=== PATIENT | female | born 1980 | race Caucasian/White ===

== ENCOUNTER 2019-02-14 05:40 | Day surgery (SDC) | payer BC ==
[2019-02-13 12:33] LABS: CALC OSMOLALITY 276 mosm/kg (275-300); CALCIUM 8.8 mg/dL (8.5-10.1); CARBON DIOXIDE 28.2 mmol/L (21.0-32.0); CHLORIDE - SERUM 104 mmol/L (98-107); CREATININE - SERUM 0.7 mg/dL (0.6-1.3); GLUCOSE 94 mg/dL (74-106); POTASSIUM - SERUM 4.1 mmol/L (3.5-5.1); SODIUM 140 mmol/L (136-145); UREA NITROGEN 8 mg/dL (7-18); eGFR NON AFRICAN AMERICAN > 90 mL/min (90-120)
[2019-02-13 14:08] LABS: EOSINOPHILS 1.8 % (0-7); HEMATOCRIT 39.2 % (36.0-48.0); HEMOGLOBIN 13.7 g/dL (12-16); IMMATURE GRANULOCYTES 0.1 % (0-5); LYMPHOCYTES 41.4 % (15-50); MCH 32.4 pg (26.0-34.0); MCHC 34.9 g/dL (31.0-37.0); MCV 92.7 fL (80.0-100.0); NEUTROPHILS 48.7 % (40-80); RBC 4.23 10x6/uL (4.00-5.40); WBC 7.3 10x3/uL (4.8-10.8)
[2019-02-13 14:11] LABS: PLATELET COUNT 283 10x3/uL (130-400)
[~2019-02-14] VITALS: Ht 172.7 cm; Wt 69.4 kg
[~2019-02-14 05:40] MED LIST: COLACE100 MG PO; PRENATAL VITAMIN
[2019-02-14 06:17] VITALS: BP 111/64; Ht 172.7 cm; Wt 69.4 kg
[2019-02-14 06:27] LABS: HCG URINE NEGATIVE (NEGATIVE)
[2019-02-14] MEDS ORDERED: HYDROCODON-ACE1 EA10 PO (08:59)
--- NOTE | 2019-02-14 09:16 | NUR ---
ICE PACK APPLIED, ICE CHIPS GIVEN. PT AWAKE. VSS. NO CURRENT NEEDS. WILL CTM.
--- NOTE | 2019-02-14 10:12 | NUR ---
0933-REC'D FROM RR. DROWSY. VSS. DRESSING CDI. REPORTS PAIN 06/14. IV PATENT TO LEFT HAND AT KVO. WATER AT BEDSIDE. CL IN EASY REACH AND FAMILY AT BEDSIDE.
--- NOTE | 2019-02-14 13:02 | NUR ---
1005-TOLERATED FULL LIQUID. NO NAUSEA OR VOMITING. VSS. REPORTS PAIN /10. PER MD ORDERS ADMINISTERED NORCO 10/325MG 1 BY MOUTH.DRESSING CDI. CL IN EASY REACH,SPOUSE AT BEDSIDE.
--- NOTE | 2019-02-14 13:04 | NUR ---
1115-VSS. PAIN 05/15. IV PATENT AT KVO. NO DESIRE TO VOID AT THIS TIME. WILL KEEP FLUIDS AT KVO. CL IN EASY REACH AND SPOUSE AT BEDSIDE. DRESSING CDI.
--- NOTE | 2019-02-14 13:05 | NUR ---
1205-ABLE TO AMBULATE TO RESTROOM WITH SLOW STEADY GAIT AND VOID WITHOUT COMPLICATIONS. IV REMOVED FROM LEFT HAND WITH CATH INTACT,DISPOSED INTO SHARPS COVEREDSITE WITH GUAZE AND BANDAID.
--- NOTE | 2019-02-14 13:07 | NUR ---
1215-REVIEWED POST OPERATIVE INSTRUCTIONS AND FOLLOW UP APPOINTMENT. VERBALIZED UNDERSTANDING. ESCORTED OUT VIA W/C WITH SPOUSE AWAITING TO DRIVE HOME.
--- NOTE | 2019-02-18 14:05 | OP ---
PATIENT NAME: AMIRAH BLAIR MEDICAL RECORD: [id number] :82 LOCATION:D.OPS ADMISSION DATE: SURGEON: FRANSISCO DOWELL MD DATE OF OPERATION: 02/14/2019 PREOPERATIVE DIAGNOSIS: Left inguinal hernia. POSTOPERATIVE DIAGNOSIS: Left inguinal hernia. PROCEDURE: Left inguinal hernia repair with medium PHS mesh. SURGEON: Fransisco Dowell MD REPORT OF PROCEDURE: The patient's left groin was prepped and draped in sterile fashion. An oblique incision was made above the inguinal ligament. Electrocautery was used to dissect through the subcutaneous tissues to the external oblique fascia. This fascia was opened up to the external ring using electrocautery. The round ligament was elevated and a Joce was placed around it. We then transected the round ligament at its base near the pubic symphysis using a 3-0 silk tie. As we dissected the tissues off of this, we could see the patient had an indirect hernia defect. We did not have any contents present within it. We freed up this hernia sac and was able to make a small opening in it. We penetrated the hernia sac and could see that it went into the abdominal cavity. We then closed up this small opening with a 3-0 Vicryl. We then pushed the hernia sac back into the abdominal cavity and opened up the preperitoneal space of Retzius. We placed a medium PHS mesh and then sutured this down on all sides using multiple interrupted 0 Vicryls. The wound was irrigated out thoroughly with normal saline. The ilioinguinal nerve was found and high ligated. We closed the external oblique fascia with running 2-0 Vicryl, Tamara's was closed with interrupted 3-0 Vicryl and the skin was closed with running subcutaneous 5-0 Monocryl. A 10 mL of 0.25% Marcaine with epinephrine was infused into the surrounding tissues and the wound was dressed appropriately. COMPLICATIONS: None. CONDITION: Stable. ANESTHESIA: General endotracheal and local. BLOOD LOSS: Minimal. TRANSINT:[id number] Voice Confirmation ID: [id number] DOCUMENT ID: [id number] FRANSISCO DOWLEL MD at 1405 CC: RODNEY MOJICA MD [id number] DICTATION DATE: 02/14/19901 STORE HAND: 02/14/19 113[address] [facility] 02/14/19 [facility] [address] [id number]
== END 2019-02-14 12:05 | disposition home or self-care (01) ==
LOC: D.OPS 05:40
PROVIDERS: ATTEND Surgery
DX: K40.90 Unilateral inguinal hernia, without obstruction or gangrene, not specified as recurrent (principal)